=== PATIENT | female | born 1960 | race Caucasian/White ===

== ENCOUNTER 2016-05-22 15:33 | Emergency (ER) | payer OTHER ==
[~2016-05-22] VITALS: Ht 162.6 cm; Wt 143.6 kg
[~2016-05-22 15:33] MED LIST: BACL10TA PO; CHOLCAP10 PO; INSDGI SC; MAGN500C PO; MELO7.5T5 PO; NVLGI SC; OXYC1TAB3 PO
[2016-05-22 15:37] VITALS: TEMP 37; Ht 162.6 cm; Wt 143.6 kg
[2016-05-22] MEDS ORDERED: SODIUM CHLORIDE 0.9% 1000ML 1,000 ML IV STA (16:09)
[2016-05-22] MEDS ORDERED: AMPICILLIN/SULBACTAM SOD INJ 3,000 MG in SODIUM CHLORIDE 0.9% 100ML 100 ML IV ONE (16:15)
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
[2016-05-22 16:50] LABS: BASO % 0.7 %; BASO ABS # 0.05 K/uL (0-0.2); COMPLETE YES; EOS % 2.7 %; HEMATOCRIT 42.8 % (37-47); IG% 0.1 %; LYMPH % 33.5 %; LYMPH ABS # 2.37 K/uL (1.2-3.4); MEAN CELL VOLUME 89.9 fL (80-100); MEAN CORPUSCULAR HEMOGLOBIN 31.3 pg (25-34); MEAN CORPUSCULAR HGB CONC 34.8 g/dl (32-36); MONO % 6.9 %; NEUT % 56.1 %; PLATELET COUNT 227 K/uL (130-400); RED BLOOD COUNT 4.76 M/uL (4.2-5.4); WHITE BLOOD COUNT 7.08 K/uL (4.8-10.8)
[2016-05-22 17:30] LABS: ALB/GLOB RATIO 0.8 (0.9-2); BUN/CREATININE RATIO 12.5 (10-20); CREATININE 1.1 mg/dl (0.60-1.20); POTASSIUM 3.7 mmol/L (3.5-5.1)
--- NOTE | 2016-05-22 17:51 | EMERGENCY ROOM VISIT NOTE ---
ED Visit Note First contact with patient: 15:44 Patient was seen by our PA/GANG VIBRATOR OPERATOR. I was involved in the patient's care and did evaluate the patient myself. I was involved in the care throughout the ER stay. The patient has a wound to the left lower abdominal wall. This is ulcer-like in appearance with some mild surrounding erythema, no fluctuance. The patient is not toxic in appearance. She will be treated as an outpatient with additional antibiotics.
[2016-05-22] MEDS ORDERED: AMOX875T PO (18:03)
[2016-05-22 18:29] VITALS: BP 140/91; PULSE 84; O2SAT 94
[2016-05-22] MEDS ORDERED: FLUC150T PO (18:33)
[2016-07-08] MEDS ORDERED: DIAZ-165 PO (10:29)
[2016-07-08] MEDS ORDERED: CITA40TA12 PO (10:29)
[2016-07-08] MEDS ORDERED: ZNTT/150 PO (10:29)
== END 2016-05-22 18:31 | disposition home or self-care (01) ==
LOC: C.EDB 15:34
DX: L98.491 Non-pressure chronic ulcer of skin of other sites limited to breakdown of skin (principal); L03.311 Cellulitis of abdominal wall; E11.9 Type 2 diabetes mellitus without complications; Z79.82 Long term (current) use of aspirin; Z79.2 Long term (current) use of antibiotics; Z79.4 Long term (current) use of insulin; Z79.899 Other long term (current) drug therapy

== ENCOUNTER → 2016-07-07 | Outpatient (CLI) | payer OTHER ==
[~2016-07-07] MED LIST changes: +ASPI81TA28 PO; -BACL10TA PO; +BND25CL PO; +BUSP-8 PO; -CHOLCAP10 PO; +CITA40TA12 PO; +CPR500HP PO; +DIAZ-165 PO; +FRS/40 PO; +LRS10 PO; +MAGN400T6 PO; -MAGN500C PO; +MELO15TA4 PO; -MELO7.5T5 PO; +METO25TA56 PO; +MULT-506 PO; +NVLG SQ; -NVLGI SC; -OXYC1TAB3 PO; +POTA8CAP6 PO; +ZNTT/150 PO
[2016-07-07 12:43] LABS: ESTIMATED AVERAGE GLUCOSE 148 mg/dl; HA1C FLAG Normal (Normal)
[2016-07-07 12:46] LABS: ALT/SGPT 34 U/L (12-78); BLOOD UREA NITROGEN 14 mg/dl (7-18); BUN/CREATININE RATIO 17.2 (10-20); CALCIUM 8.9 mg/dl (8.5-10.1); CARBON DIOXIDE 27 mmol/L (21-32); CHLORIDE 100 mmol/L (98-107); CHOLESTEROL 158 mg/dl (0-200); CREATININE 0.79 mg/dl (0.60-1.20); GLUCOSE 275 mg/dl (70-99); POTASSIUM 3.5 mmol/L (3.5-5.1); SODIUM 140 mmol/L (136-145); TRIGLYCERIDES 456 mg/dl (0-150)
[2016-07-07 12:56] LABS: ALB/GLOB RATIO 0.7 (0.9-2); ALKALINE PHOSPHATASE 82 U/L (45-117); AST/SGOT 21 U/L (15-37); CHOLESTEROL/HDL RATIO 5.1; HDL CHOLESTEROL 31 mg/dl
[2016-07-07 13:55] LABS: RATIO 18.5 mcg/mg (0-30.0)
--- NOTE | 2016-07-14 09:50 | CODING QUERY MEDICAL NECESSITY ---
SUPPORTING DIAGNOSIS NEEDED A supporting diagnosis is required for the test/procedure performed on this patient in order for us to be reimbursed by the patient's insurance. Please provide a supporting diagnosis for the following test/procedure listed below next to the test name along with your signature. *If there is no additional diagnosis for this patient that would support the following test/procedure please document that below next to the test/procedure. Test(s)/Procedure(s) that require a supporting diagnosis: * VITAMIN D 25-HYDROXY DIAGNOSIS: * DOS: 07/07/16 Provider Signature: Date: Thank you Constance Moser [facility] Information Management Once completed, please kindly fax back to [phone] For questions please call [phone]
== END | disposition home or self-care (01) ==
LOC: C.LAB1850 11:09
PROVIDERS: ATTEND Internal Medicine Endocrinology, Diabetes & Metabolism
DX: E11.9 Type 2 diabetes mellitus without complications (principal); E55.9 Vitamin D deficiency, unspecified

== ENCOUNTER 2016-07-08 14:29 | Emergency (ER) | payer OTHER ==
[~2016-07-08] VITALS: Ht 162.6 cm; Wt 147.1 kg
[~2016-07-08 14:29] MED LIST changes: -ASPI81TA28 PO; -BND25CL PO; -BUSP-8 PO; -CPR500HP PO; -FRS/40 PO; -INSDGI SC; -LRS10 PO; -MAGN400T6 PO; -MELO15TA4 PO; -METO25TA56 PO; -MULT-506 PO; -NVLG SQ; -POTA8CAP6 PO
[2016-07-08 14:35] VITALS: TEMP 36.9; Ht 162.6 cm; Wt 147.1 kg
[2016-07-08] MEDS ORDERED: SODIUM CHLORIDE 0.9% 1000ML 1,000 ML IV STA (14:53)
[2016-07-08] MEDS ORDERED: METO25TA56 PO (14:58)
[2016-07-08] MEDS ORDERED: POTA8CAP6 PO (14:58)
[2016-07-08] MEDS ORDERED: MULT-506 PO (14:58)
[2016-07-08] MEDS ORDERED: ASPI81TA28 PO (14:58)
[2016-07-08] MEDS ORDERED: FRS/40 PO (14:58)
--- NOTE | 2016-07-08 15:11 | EMERGENCY ROOM VISIT NOTE ---
History First contact with patient: 14:44 Chief Complaint: URINARY SYMPTOMS Stated Complaint: KIDNEY AND UTI Nursing Triage Summary: Triage Note: Pt reports "i have a bladder and kidney infection and it is not getting better, i was on cipro and started it wednesday but my back and stomach still hurt and it hurts to go to the bathroom." History of Present Illness The patient is a 56 year old female who presents to the Emergency Room with complaints of urinary symptoms. The patient states that she developed urine symptoms last week. She states that she has urinary urgency and frequency. She reports discomfort over the bladder area. The patient states she saw her family doctor last week and was diagnosed with a bladder infection. She was started on Bactrim but was not improving. She saw her family doctor a can on Wednesday and was started on Cipro. She states she has still had no change in her symptoms. She reports chills. She denies any fevers. She denies any pain in her chest or trouble breathing. She denies any hematuria. She denies any vaginal bleeding or discharge. She states she is not currently sexually active. She denies any diarrhea. She is a diabetic and reports recurrent urinary tract infections. Review of Systems A 10 system review of systems was completed with positives and pertinent negatives listed in the HPI. Past Medical/Surgical History Medical Problems: (1) Cellulitis of left hand (2) Chronic back pain (3) Diabetes (4) Hypertension Surgical Problems: (1) History of appendectomy Family History Cancer Diabetes mellitus FHx: gallbladder disease Heart disease Hypertension Social History Smoking Status: Never Smoker Alcohol Use: none Drug Use: none Marital Status: single Housing Status: lives alone Occupation Status: unemployed Current/Historical Medications Scheduled Aspirin (Aspirin Ec), 81 MG PO DAILY Baclofen (Baclofen), 10 MG PO TID Buspirone Hcl (Buspirone Hcl), 10 MG PO BID Ciprofloxacin (Ciprofloxacin HCl), 1 TAB PO BID Citalopram Hydrobromide (Celexa), 40 MG PO DAILY Diazepam (Valium), 5 MG PO HS Diphenhydramine HCl (Diphenhydramine HCl), 50 MG PO QAM Furosemide (Lasix), 40 MG PO BID Insulin Aspart (Novolog), 25 UNITS SQ TID Insulin Glargine (Lantus), 60 UNITS SC QPM Magnesium Oxide (Mag-Ox), 400 MG PO DAILY Metoprolol Tartrate (Lopressor) (Lopressor), 25 MG PO QAM Multivitamin (Multivitamin), 1 TAB PO BID Potassium Chloride (Klor-Con Ext Rel), 8 MEQ PO BID Ranitidine (Zantac), 150 MG PO BID Scheduled PRN Meloxicam (Meloxicam), 15 MG PO DAILY PRN for Pain Allergies Coded Allergies: BEE STING (Unverified Allergy, Unknown, ., 05/22/16) Cyclobenzaprine (Unverified Allergy, Unknown, RASH, 05/22/16) Meperidine (Unverified Allergy, Unknown, hives/difficulty breathing, ) Physical Exam Vital Signs Date Time Temp Pulse Resp B/P Pulse Ox O2 Delivery O2 Flow Rate FiO2 07/08/16 19:24 86 18 133/71 94 07/08/16 17:53 89 22 130/85 92 Room Air 07/08/16 14:35 36.9 85 18 138/77 Room Air Physical Exam VITALS: Vitals are noted on the nurse's note and reviewed by myself. Vital signs stable. The patient is afebrile. GENERAL: This is a 56-year-old female, in no acute distress, nondiaphoretic, well-developed well-nourished. SKIN: The skin was without edema, or bruising. The patient does have what appears to be yeast infection in the folds beneath her breasts and her pannus. There is no tenting of the skin. Capillary reflex less than 2 seconds. HEAD: Normocephalic atraumatic. EARS: The external ears are normal in appearance. EYES: Pupils equal round and reactive to light and accommodation. Conjunctivae without injection, sclerae without icterus. Extraocular movements intact. NOSE: Patent, turbinates without inflammation or discharge. MOUTH: Mucous membranes moist. Tonsils are not enlarged. Pharynx without erythema or exudate. Uvula midline. Airway patent. Tongue does not deviate. NECK: Supple without nuchal rigidity. No JVD. HEART: Regular rate and rhythm without murmurs gallops or rubs. LUNGS: Clear to auscultation bilaterally without wheezes, rales or rhonchi. No retractions or accessory muscle use. ABDOMEN: Positive bowel sounds x 4. Soft, mild superpubic tenderness, without masses or organomegaly. Moderate bilateral CVA tenderness. MUSCULOSKELETAL: No muscle atrophy, erythema, or edema noted. Full range of motion in all extremities Normal gait. Strength 5/5 throughout. NEURO: Patient was alert and oriented to person place and time. No focal neurological deficits. Medical Decision & Procedures ER Provider Diagnostic Interpretation: [~ rep ct add3]] CT SCAN OF THE ABDOMEN AND PELVIS WITH IV CONTRAST CLINICAL HISTORY: Generalized abdominal pain. COMPARISON STUDY: No priors. TECHNIQUE: Following the IV administration of 119 cc of Optiray 320, CT scan of the abdomen and pelvis is performed from the lung bases to the proximal femora. Images are reviewed in the axial, sagittal, and coronal planes. IV contrast was administered without complication. Automated dose control exposure was utilized. The examination is significantly degraded by large body habitus, and by streak artifact from the body wall abutting the CT gantry. CT DOSE: 2172.79 mGy.cm FINDINGS: Lung bases: The heart is top normal in size and without pericardial effusion. Linear atelectasis versus scarring is seen at the left lung base. There is no airspace consolidation typical for pneumonia or pleural effusion. Scattered calcified granulomas are observed. A 4 mm noncalcified nodule at the right lung base is seen on image #50. A 4 mm nodule in the left lower lobe as seen on image #57. Apparent mediastinal widening is seen on the labor contract analyst tomogram. 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 There is a small hiatal hernia. Liver: Evaluation of the liver is degraded by streak artifact. The contrast-enhanced liver is markedly enlarged, measuring 28 cm in length. The liver demonstrates diffusely diminished attenuation consistent with hepatic steatosis. There is no intrahepatic biliary ductal dilatation. The hepatic veins and portal veins are patent. Gallbladder: Unremarkable. Spleen: There are calcified splenic granulomas. The spleen is mildly enlarged, measuring 13.5 cm in length. Pancreas: Unremarkable. Adrenal glands: Unremarkable. Kidneys: The contrast enhanced kidneys are normal in size and without hydronephrosis. The kidneys enhance symmetrically. A retroaortic left renal vein is incidentally noted. Abdominal vasculature: The abdominal aorta is normal in course and caliber noting mild atherosclerotic calcification. Bowel: The small bowel and colon are normal in course and caliber. There are scattered colonic diverticula without CT evidence of acute diverticulitis. Mild colonic fecal retention is observed. The appendix is not identified and reported surgically absent. An appendiceal stump is identified. Peritoneum: There is no intraperitoneal free air or abdominal ascites. There is laxity of the ventral abdominal wall with diastases of the rectus musculature. Lymphadenopathy: None. Pelvic viscera: The bladder, uterus, and adnexa are normal as visualized. Skeletal structures: The skeletal structures are osteopenic. There is mild to moderate lumbosacral spondylosis. No lytic or blastic lesions are seen. There are bilateral pars defects at L5 with 11 mm anterolisthesis at L5-S1. Advanced degenerative changes seen at this level. IMPRESSION: 1. There are no acute infectious or inflammatory findings in the abdomen or pelvis. 2. Hepatomegaly and severe hepatic steatosis. 3. Mild splenomegaly. 4. Mediastinal widening is suggested on the labor contract analyst tomogram. 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 This likely explains the tomographic finding. If there is clinical concern for an aortic process a CT scan of the chest could be considered for further assessment. 5. Scattered colonic diverticula without CT evidence of acute diverticulitis. 6. Additional findings as above. Laboratory Results 07/08/16 16:00 Red Blood Count 4.49, Mean Corpuscular Volume 88.9, Mean Corpuscular Hemoglobin 31.0, Mean Corpuscular Hemoglobin Concent 34.8, Mean Platelet Volume 9.5, Neutrophils (%) (Auto) 62.8, Lymphocytes (%) (Auto) 24.5, Monocytes (%) (Auto) 8.9, Eosinophils (%) (Auto) 2.6, Basophils (%) (Auto) 0.6, Neutrophils # (Auto) 4.37, Lymphocytes # (Auto) 1.70, Monocytes # (Auto) 0.62, Eosinophils # (Auto) 0.18, Basophils # (Auto) 0.04 07/08/16 16:00 Test 07/08/16 15:20 07/08/16 16:00 07/08/16 18:53 Urine Color YELLOW Urine Appearance CLEAR (CLEAR) Urine pH 7.5 (4.5-7.5) Urine Specific [place] 1.002 (1.000-1.030) Urine Protein NEG (NEG) Urine Glucose (UA) NEG (NEG) Urine Ketones NEG (NEG) Urine Occult Blood NEG (NEG) Urine Nitrite NEG (NEG) Urine Bilirubin NEG (NEG) Urine Urobilinogen NEG (NEG) Urine Leukocyte Esterase NEG (NEG) White Blood Count 6.95 K/uL (4.8-10.8) Red Blood Count 4.49 M/uL (4.2-5.4) Hemoglobin 13.9 g/dL (12.0-16.0) Hematocrit 39.9 % (37-47) Mean Corpuscular Volume 88.9 fL (80-100) Mean Corpuscular Hemoglobin 31.0 pg (25-34) Mean Corpuscular Hemoglobin Concent 34.8 g/dl (32-36) Platelet Count 193 K/uL (130-400) Mean Platelet Volume 9.5 fL (7.4-10.4) Neutrophils (%) (Auto) 62.8 % Lymphocytes (%) (Auto) 24.5 % Monocytes (%) (Auto) 8.9 % Eosinophils (%) (Auto) 2.6 % Basophils (%) (Auto) 0.6 % Neutrophils # (Auto) 4.37 K/uL (1.4-6.5) Lymphocytes # (Auto) 1.70 K/uL (1.2-3.4) Monocytes # (Auto) 0.62 K/uL (0.11-0.59) Eosinophils # (Auto) 0.18 K/uL (0-0.5) Basophils # (Auto) 0.04 K/uL (0-0.2) RDW Standard Deviation 42.8 fL (36.4-46.3) RDW Coefficient of Variation 13.2 % (11.5-14.5) Immature Granulocyte % (Auto) 0.6 % Immature Granulocyte # (Auto) 0.04 K/uL (0.00-0.02) Anion Gap 7.0 mmol/L (3-11) Est Creatinine Clear Calc Drug Dose 145.5 ml/min Estimated GFR () 115.8 Estimated GFR (Non- 99.9 BUN/Creatinine Ratio 11.8 (10-20) Calcium Level 8.9 mg/dl (8.5-10.1) Total Bilirubin 0.6 mg/dl (0.2-1) Aspartate Amino Transf (AST/SGOT) 29 U/L (15-37) Alanine Aminotransferase (ALT/SGPT) 38 U/L (12-78) Alkaline Phosphatase 85 U/L (45-117) Total Protein 8.2 gm/dl (6.4-8.2) Albumin 3.4 gm/dl (3.4-5.0) Globulin 4.8 gm/dl (2.5-4.0) Albumin/Globulin Ratio 0.7 (0.9-2) Lipase 109 U/L (73-393) Bedside Glucose 102 mg/dl (70-90) Medications Administered Medications (Trade) Dose Ordered Sig/Dante Route Start Time Stop Time Status Last Admin Dose Admin Sodium Chloride (Nss 1000ml) 1,000 ml @ 999 mls/hr Q1H1M STAT IV 07/08/16 14:53 07/08/16 15:53 DC 07/08/16 15:47 999 MLS/HR ED Course The patient was seen and examined. Previous visits were reviewed. The patient does not have a fever or leukocytosis. She does not have any significant electrolyte abnormality. Lipase was not elevated. Urinalysis was negative. CT scan of the abdomen and pelvis revealed hepatomegaly and hepatic steatosis. The patient was advised of this and encouraged to follow-up with her family doctor. There is also question of mediastinal widening on CT scan of the abdomen and pelvis and therefore CT scan of the chest for dissection was obtained. This reveals mediastinal lipomatosis. The patient also has multiple pulmonary nodules. She was advised that the pulmonary nodules and encouraged to follow with her family doctor for further evaluation and management. The patient was hydrated with normal saline. She declined pain medication. The exact etiology for the patient's abdominal pain is not clear. She does have hepatic steatosis. She does have pulmonary nodules. She was advised of these findings. The patient does have yeast under her breasts and beneath her abdominal folds. The patient states that she has cream and powder at home and was encouraged to use these. She should contact her family doctor to schedule a follow-up appointment for further evaluation and management. The patient should return to the emergency Department with any worsening symptoms. The patient was also seen and examined by who agrees with the assessment and treatment plan. Medical Decision DIFFERENTIAL DIAGNOSIS: Hepatitis, cholecystitis, cholangitis, biliary colic, pancreatitis, pneumonia, subdiaphragmatic abscess, appendicitis, inguinal hernia , nephrolithiasis, inflammatory bowel disease, mesenteric adenitis, peptic ulcer disease, GERD, gastritis, pancreatitis, myocardial infarction, pericarditis, ruptured aortic aneurysm, appendicitis, gastroenteritis, bowel obstruction, splenic infarct, diverticulitis, mesenteric ischemia, metabolic, peritonitis, among others. Impression Primary Impression: Abdominal pain Additional Impressions: Pulmonary nodule Fatty liver Departure Information Dispostion Home / Self-Care Condition GOOD Referrals Russ Keller (PCP) Patient Instructions Abdominal Pain, ED Nodule Solitary Pulmonary, [facility] Additional Instructions Follow up with your family doctor regarding the pulmonary nodules and a fatty liver Return to the emergency Department with any worsening symptoms Problem Qualifiers
[2016-07-08] MEDS ORDERED: CPR500HP PO (15:19)
[2016-07-08] MEDS ORDERED: LRS10 PO (15:22)
[2016-07-08] MEDS ORDERED: MELO15TA4 PO (15:22)
[2016-07-08] MEDS ORDERED: MAGN400T6 PO (15:22)
[2016-07-08 16:11] LABS: BASO % 0.6 %; BASO ABS # 0.04 K/uL (0-0.2); COMPLETE YES; EOS % 2.6 %; HEMATOCRIT 39.9 % (37-47); IG% 0.6 %; LYMPH % 24.5 %; MEAN CELL VOLUME 88.9 fL (80-100); MEAN CORPUSCULAR HGB CONC 34.8 g/dl (32-36); MEAN PLATELET VOLUME 9.5 fL (7.4-10.4); MONO % 8.9 %; NEUT % 62.8 %; PLATELET COUNT 193 K/uL (130-400); RED BLOOD COUNT 4.49 M/uL (4.2-5.4); WHITE BLOOD COUNT 6.95 K/uL (4.8-10.8)
[2016-07-08 16:21] LABS: URINE APPEARANCE CLEAR (CLEAR); URINE BILIRUBIN NEG (NEG); URINE COLOR YELLOW; URINE NITRITE NEG (NEG); URINE PH 7.5 (4.5-7.5); URINE SPECIFIC GRAVITY 1.002 (1.000-1.030); UROBILINOGEN NEG (NEG); ZZURINE CULT IF INDIC CATH NO
[2016-07-08 16:26] LABS: MANUAL MICROSCOPIC REQUIRED? NO; REVIEW REQ? NO
[2016-07-08 16:30] LABS: BUN/CREATININE RATIO 11.8 (10-20); CALCIUM 8.9 mg/dl (8.5-10.1); CREATININE 0.61 mg/dl (0.60-1.20); POTASSIUM 3.4 mmol/L (3.5-5.1)
[2016-07-08 16:41] LABS: ALB/GLOB RATIO 0.7 (0.9-2)
[2016-07-08] MEDS ORDERED: OPTIRAY 320 IV PRN ×2 (16:45→18:00)
[2016-07-08] MEDS ORDERED: BND25CL PO (17:12)
[2016-07-08] MEDS ORDERED: NVLG SQ (17:12)
[2016-07-08] MEDS ORDERED: INSDGI SC (17:12)
[2016-07-08] MEDS ORDERED: BUSP-8 PO (17:12)
--- NOTE | 2016-07-08 17:34 | DIAGNOSTIC IMAGING REPORT ---
CT SCAN OF THE ABDOMEN AND PELVIS WITH IV CONTRAST CLINICAL HISTORY: Generalized abdominal pain. COMPARISON STUDY: No priors. TECHNIQUE: Following the IV administration of 119 cc of Optiray 320, CT scan of the abdomen and pelvis is performed from the lung bases to the proximal femora. Images are reviewed in the axial, sagittal, and coronal planes. IV contrast was administered without complication. Automated dose control exposure was utilized. The examination is significantly degraded by large body habitus, and by streak artifact from the body wall abutting the CT gantry. CT DOSE: 2172.79 mGy.cm FINDINGS: Lung bases: The heart is top normal in size and without pericardial effusion. Linear atelectasis versus scarring is seen at the left lung base. There is no airspace consolidation typical for pneumonia or pleural effusion. Scattered calcified granulomas are observed. A 4 mm noncalcified nodule at the right lung base is seen on image #50. A 4 mm nodule in the left lower lobe as seen on image #57. Apparent mediastinal widening is seen on the telephone installer tomogram. 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 There is a small hiatal hernia. Liver: Evaluation of the liver is degraded by streak artifact. The contrast-enhanced liver is markedly enlarged, measuring 28 cm in length. The liver demonstrates diffusely diminished attenuation consistent with hepatic steatosis. There is no intrahepatic biliary ductal dilatation. The hepatic veins and portal veins are patent. Gallbladder: Unremarkable. Spleen: There are calcified splenic granulomas. The spleen is mildly enlarged, measuring 13.5 cm in length. Pancreas: Unremarkable. Adrenal glands: Unremarkable. Kidneys: The contrast enhanced kidneys are normal in size and without hydronephrosis. The kidneys enhance symmetrically. A retroaortic left renal vein is incidentally noted. Abdominal vasculature: The abdominal aorta is normal in course and caliber noting mild atherosclerotic calcification. Bowel: The small bowel and colon are normal in course and caliber. There are scattered colonic diverticula without CT evidence of acute diverticulitis. Mild colonic fecal retention is observed. The appendix is not identified and reported surgically absent. An appendiceal stump is identified. Peritoneum: There is no intraperitoneal free air or abdominal ascites. There is laxity of the ventral abdominal wall with diastases of the rectus musculature. Lymphadenopathy: None. Pelvic viscera: The bladder, uterus, and adnexa are normal as visualized. Skeletal structures: The skeletal structures are osteopenic. There is mild to moderate lumbosacral spondylosis. No lytic or blastic lesions are seen. There are bilateral pars defects at L5 with 11 mm anterolisthesis at L5-S1. Advanced degenerative changes seen at this level. IMPRESSION: 1. There are no acute infectious or inflammatory findings in the abdomen or pelvis. 2. Hepatomegaly and severe hepatic steatosis. 3. Mild splenomegaly. 4. Mediastinal widening is suggested on the telephone installer tomogram. 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 This likely explains the tomographic finding. If there is clinical concern for an aortic process a CT scan of the chest could be considered for further assessment. 5. Scattered colonic diverticula without CT evidence of acute diverticulitis. 6. Additional findings as above. Electronically signed by: Thanh Merino M.D. 07/08/2016 5:33 PM Dictated Date/Time: 07/08/2016 5:25 PM
--- NOTE | 2016-07-08 18:22 | EMERGENCY ROOM VISIT NOTE ---
ED Visit Note First contact with patient: 14:44 Staff note: I have reviewed the Patients chart and have discussed this case with my PA. I generally agree with the ED note and findings.
--- NOTE | 2016-07-08 18:58 | DIAGNOSTIC IMAGING REPORT ---
CT ANGIOGRAM OF THE CHEST COMBO CLINICAL HISTORY: Widened mediastinum. COMPARISON STUDY: Abdominal CT performed the same day 07/08/2016. TECHNIQUE: Before and following the IV administration of 92 cc of Optiray 320, CT angiogram of the chest was performed from the thoracic inlet to the upper abdomen utilizing the dissection protocol. Images are reviewed in the axial, sagittal, and coronal planes. 3-D MIPS images are created and assessed. IV contrast was administered without complication. The examination is degraded by large body habitus, and by streak artifact from the body wall abutting the CT gantry. CT DOSE: 3010.24 mGy.cm FINDINGS: Thyroid: Imaged portions of the thyroid gland are normal in size and attenuation. Thoracic aorta: The thoracic aorta is normal in caliber and demonstrates standard 3-vessel arch anatomy. No dissection is seen. Pulmonary vasculature: The pulmonary trunk is normal in caliber. The pulmonary vessels are not well opacified. Heart: The heart is normal in size and there is trace pericardial effusion. There are scattered coronary artery calcifications. Lungs and pleural spaces: There is no airspace consolidation or pleural effusion. Foci of air trapping are suspected in the upper lobes. Scattered calcified granulomas are identified. The trachea and central airways are clear. Foci of atelectasis versus scarring are seen in the lower lobes. There are scattered (less than 10) noncalcified pulmonary nodules. The largest nodule measures 5 mm as seen in the left lower lobe on image #135. 4 mm nodules are seen in the left lower lobe on image #204, the right lower lobe on image #167, and the right middle lobe on image #145. A 3 mm right lower lobe nodule seen on image #174. 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 There is no mediastinal lymphadenopathy. Rae: Clear. Axillae: There is no axillary lymphadenopathy. Upper abdomen: The liver is markedly enlarged and steatotic. The spleen is mildly enlarged. Calcified splenic granulomas are observed. A tiny hiatal hernia is identified. See report of abdominal CT performed the same day for detailed intra-abdominal findings. Skeletal structures: The skeletal structures are osteopenic. Degenerative change is noted throughout the thoracic spine. No lytic or blastic bony lesions are seen. IMPRESSION: 1. There is no aneurysm or dissection seen involving the thoracic area. 2. 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 This corresponds to the abnormality seen on the tomogram. 3. No airspace consolidation or pleural effusion is identified. 4. There are scattered (less than 10) indeterminant pulmonary nodules measure up to 5 mm. These can be followed as per the Fleischner criteria. See below. 5. Hepatomegaly and severe hepatic steatosis. 6. Additional findings as above. Please refer to below summary of Fleischner criteria recommendations for follow-up of incidental CT nodules (Raven Salmeron, Guidelines for management of small pulmonary nodules detected on CT scans: A statement from the Fleischner Society, Radiology 237: [phone].) Low Risk Patient: Minimal or no smoking or other known risk factors for malignancy <=4 mm: No follow-up needed. >4-6 mm: Initial follow-up CT at 12 months; if unchanged, no further follow-up. >6-8 mm: Initial follow-up CT at 6-12 months then at 18-24 months if no change. >8 mm: Follow-up CT at \R\3, 9, 24 months, or PET and/or biopsy. High Risk Patient: History of smoking or other known risk factors <=4 mm: Follow-up at 12 months; if unchanged, no further follow-up. >4-6 mm: Initial follow-up CT at 6-12 months then at 18-24 months if no change. >6-8 mm: Initial follow-up CT at 3-6 months then at 9-12 and 24 months if no change. >8 mm: Same as low risk patient. Note: Nodule size measured as average of length and width. Ground glass or partly solid nodules may require longer follow-up to exclude indolent adenocarcinoma. Electronically signed by: Thanh Merino M.D. 07/08/2016 6:57 PM Dictated Date/Time: 07/08/2016 6:50 PM
[2016-07-08 19:24] VITALS: BP 133/71; PULSE 86; O2SAT 94
== END 2016-07-08 19:24 | disposition home or self-care (01) ==
LOC: C.EDB 14:32 → C.EDC 19:24
DX: K76.0 Fatty (change of) liver, not elsewhere classified (principal); E88.2 Lipomatosis, not elsewhere classified; R91.1 Solitary pulmonary nodule; R16.1 Splenomegaly, not elsewhere classified; K57.30 Diverticulosis of large intestine without perforation or abscess without bleeding; E11.9 Type 2 diabetes mellitus without complications; I10 Essential (primary) hypertension; G89.29 Other chronic pain; Z87.440 Personal history of urinary (tract) infections; Z86.19 Personal history of other infectious and parasitic diseases; Z98.890 Other specified postprocedural states; Z79.82 Long term (current) use of aspirin; Z79.4 Long term (current) use of insulin; Z79.899 Other long term (current) drug therapy; Z88.8 Allergy status to other drugs, medicaments and biological substances; Z91.030 Bee allergy status; Z80.9 Family history of malignant neoplasm, unspecified; Z83.3 Family history of diabetes mellitus; Z83.79 Family history of other diseases of the digestive system; Z82.49 Family history of ischemic heart disease and other diseases of the circulatory system

== ENCOUNTER → 2016-10-26 | Outpatient (CLI) | payer OTHER ==
[~2016-10-26] MED LIST changes: +ASPI81TA28 PO; +BUSP-8 PO; +CPR500HP PO; +DIPH25CA48 PO; +FRS/40 PO; +INSDGI SC; +LRS10 PO; +MAGN400T6 PO; +MELO15TA4 PO; +METO25TA56 PO; +MULT-506 PO; +NVLG SQ; +POTA8CAP6 PO
[2016-10-26 12:46] LABS: ESTIMATED AVERAGE GLUCOSE 128 mg/dl; HA1C FLAG Normal (Normal)
== END | disposition home or self-care (01) ==
LOC: C.LAB1850 11:05
PROVIDERS: ATTEND Physician Assistant
DX: E11.9 Type 2 diabetes mellitus without complications (principal)

== ENCOUNTER → 2017-01-26 | Outpatient (CLI) | payer OTHER ==
[~2017-01-26] MED LIST changes: +BND25CL PO; -DIPH25CA48 PO
[2017-01-26 14:40] LABS: MEAN CELL VOLUME 93.9 fL (80-100); MEAN PLATELET VOLUME 9.7 fL (7.4-10.4); PLATELET COUNT 257 K/uL (130-400); RED BLOOD COUNT 4.58 M/uL (4.2-5.4); WHITE BLOOD COUNT 7.63 K/uL (4.8-10.8)
[2017-01-26 15:12] LABS: CHOLESTEROL/HDL RATIO 6.6
[2017-01-27 05:57] LABS: ESTIMATED AVERAGE GLUCOSE 143 mg/dl; HA1C FLAG Normal (Normal)
== END | disposition home or self-care (01) ==
LOC: C.LAB1850 13:41
PROVIDERS: ATTEND Physician Assistant
DX: E55.9 Vitamin D deficiency, unspecified (principal); E78.5 Hyperlipidemia, unspecified; E11.9 Type 2 diabetes mellitus without complications